=== PATIENT | female | born 1935 | race Asian ===

== ENCOUNTER 2016-11-24 13:43 | Emergency (ER) | payer OTHER ==
[~2016-11-24] VITALS: Ht 160 cm; Wt 49.9 kg
[2016-11-24 13:57] VITALS: BP 137/55
== END 2016-11-24 15:01 | disposition home or self-care (01) ==
LOC: ED 13:43
DX: S00.93XA Contusion of unspecified part of head, initial encounter (principal); I10 Essential (primary) hypertension; V43.92XA Unspecified car occupant injured in collision with other type car in traffic accident, initial encounter; Y93.89 Activity, other specified; Y92.89 Other specified places as the place of occurrence of the external cause; Y99.8 Other external cause status